=== PATIENT | female | born 1985 | race Two or more races ===

== ENCOUNTER 2024-05-04 06:18 | Day surgery (SDC) | payer BC, SELFPAY ==
[2024-04-23 10:29] LABS: % Basophils 0.3 % (0-2); % Eosinophils 0.6 % (0-6); % Immature Granulocytes 0.6 % (0-0.5); % Lymphocytes 29.3 % (20.5-51.1); % Monocytes 4.9 % (1.7-9.3); % Neutrophils 64.3 % (42.2-75.2); Absolute Eosinophils 0.1 10^3/uL (0-0.7); Absolute Immature Granulocytes 0.1 10^3/uL (0-0.05); Absolute Lymphocytes 2.7 10^3/uL (1.2-3.4); Absolute Monocytes 0.4 10^3/uL (0.1-0.6); Absolute Neutrophils 5.8 10^3/uL (1.4-6.5); Hematocrit 39.7 % (37.0-47.0); Hemoglobin 13.7 g/dL (12.0-16.0); Mean Corp Hgb Conc. 34.5 g/dL (33.0-37.0); Mean Corpuscular Hgb 30.9 pg (27.0-31.0); Mean Corpuscular Volume 89.6 fL (81.0-99.0); Mean Platelet Volume 10.9 fL (7.4-10.4); Nucleated Red Blood Cells % 0 %; Platelet Count 252 10^3/uL (130-400); Red Blood Cell Count 4.43 10^6/uL (4.20-5.40); Red Cell Dist. Width 12.4 % (11.5-14.5)
[2024-04-23 11:14] LABS: ALT (SGPT) 14 U/L (0-35); AST (SGOT) 23 U/L (14-36); Albumin 4.5 g/dl (3.5-5.0); Alkaline Phosphatase 52 U/L (38-126); Blood Urea Nitrogen 12 mg/dl (7-17); Calcium 9.7 mg/dl (8.4-10.2); Carbon Dioxide 22 mmol/L (22-30); Chloride 105 mmol/L (98-107); Glucose 86 mg/dl (70-99); Potassium 4.5 mmol/L (3.5-5.1); Sodium 136 mmol/L (135-145); Total Bilirubin 0.5 mg/dl (0.2-1.3); Total Protein 7.3 g/dl (6.3-8.2); eGFR > 60.00
[2024-04-23 14:06] VITALS: BMI 22.6
[2024-05-04] VITALS (8 sets, daily range): BP systolic 110–130; BP diastolic 72–82; BMI 22.6
--- NOTE | 2024-05-04 05:32 | HPS.HSE ---
Family Physician
-
Family Physician: Stefany Juan, DO
Chief Complaint
-
BRCA2 mutation, desire for risk reduction
History of Present Illness
38�year�old woman �0�0�2 white female presenting for consultation, known BRCA2 mutation. She is exploring risk�reducing
strategies. Her gynecologic care is managed by , she had a Pap smear January 2023 which was cytology negative, high�risk
HPV negative
Family history significant for father with pancreatic cancer, less than 1 year ago, tested positive for BRCA2.
Patient also has a paternal first cousin 37 years old further testing in the family reveals her sisters to have no evidence of mutation,
her uncle has BRCA2 mutation.
She is status post bilateral nipple sparing risk�reducing mastectomy April 24, 2022.
Past medical history significant for acne, wisdom teeth extraction
Social history patient is , she is a contractor for [employer], she denies any tobacco drug or marijuana use. She
drinks alcohol socially
Patient had previously mammogram prior to mastectomy
She has never had a colonoscopy
����������������������������������������
Review of her records dated November 30, 2018 indicating she has
BRCA2 mutation, C [address] Pathogenic mutation confirmed.
She had ultrasound and CT scan noted below. Her CA125 is 12
Medical History
Past Medical History
Past Medical History: Reports None
Past Surgical History: Reports Other (Prophylactic double mastectomy w/ reconstruction; wisdom teeth removal)
Social History
Tobacco: Non-smoker
Alcohol: Occasional
Drug: None
Personal:
Employment: Employed
Family History
Family History: Cancer (father: pancreatic, prostate, testicular; 1st cousin: breast cancer)
Allergies / Home Medications
Allergies reflects when Allergies were last updated in [employer].
Home Medications with original date entered in [facility]
Allergy/Medication List:
Gadolinium�Containing Contrast Media
Review of Systems
-
History Source: Patient
A 12 point ROS was completed and negative except as noted: Yes
Physical Exam
Physical Exam
General: Well Developed, Well Nourished and No Apparent Distress
HEENT: NormoCephalic
Respiratory: Clear
Cardiac: S1/S2 and Regular Rhythm
GI: Soft, Non Tender and Non Distended
Musculoskeletal: No Clubbing, No Cyanosis and No Edema
Skin: Warm and Dry
Neuro: Awake, Alert, Oriented and AO x 3
Psych: Calm and Intact Judgment/Insight
Laboratory Results
-
04/23/24 10:04
04/23/24 10:04
Laboratory Results
Total Bilirubin 0.5 mg/dl (0.2-1.3) 04/23/24 10:04
AST 23 U/L (14-36) 04/23/24 10:04
ALT 14 U/L (0-35) 04/23/24 10:04
Alkaline Phosphatase 52 U/L (38-126) 04/23/24 10:04
Data Reviewed
-
Diagnostic Radiology: Image Personally Visualized and interpreted
CT Scan: Image Personally Visualized and interpreted (: CT abdomen and pelvis was performed, following the administration of contrast, as per department protocol. Axial, sagittal, and coronal reconstructions were obtained. This exam was performed
according to the departmental dose�optimization program which includes automated exposure control, adjust) and Other
Impression/Plan
-
IMPRESSION:
I spoke with the patient at length and reviewed with her NCCN guidelines for management of BRCA2 mutation.
She already has undergone prophylactic bilateral mastectomy as per recommendations and is doing well, she has bilateral
implants.
The patient is at age 38, current recommendations are for consideration of risk reducing salpingo�oophorectomy between age 40�45.
We emphasized that the typical age for development of ovarian or fallopian tube cancer in this cohort appears to be 8 to 10 years
past the age for the typical BRCA1 mutation patient. We discussed that premature entry into menopause can risk possibility of
future development of cardiovascular disease and I would like to leave her ovaries in situ as long as possible to allow her to enjoy
her endogenous hormonal supply.
She is currently on oral contraceptive pills, for contraceptive purposes as well as the regular menstrual cycles and the predictability
of short cycles.
I have reviewed the imaging studies above and note both ultrasound and CT scan to be within normal limits specifically I
emphasized normal appearance of ovaries on ultrasound as well as normal appearance of pancreas. She has cyst of liver and cyst
of kidney which appear to be benign and simple at this time.
The patient is desiring the option of immediate salpingectomy with delayed oophorectomy this would allow us to
further reduce risk of development of ovarian cancer and make an assessment intraoperatively to ensure she does not
have any developing problems at this time. We will schedule the surgery in April 2024. Surgery will be scheduled at
[facility]. Risks including infection bleeding injury to adjacent organs DVT pulmonary embolism and cardiovascular
complications were discussed and reviewed. Surgery consent will be signed day of surgery.
PLAN: Laparoscopic bilateral salpingectomy
[2024-05-04] MEDS: CELEBREX 200 MG PO (06:44)
[2024-05-04] MEDS: NEURONTIN 300 MG PO (06:45)
[2024-05-04] MEDS: TYLENOL 1000 MG PO (06:45)
[2024-05-04] MEDS: HEPARIN 5000 UNITS SC (06:45)
[2024-05-04] MEDS: NORMOSOL-R 1000 IV (06:46)
[2024-05-04] MEDS: SUBLIMAZE 25 MCG IV (08:54)
--- NOTE | 2024-05-04 08:59 | OR.RPT ---
Operative Report
Operative Report
Date of procedure: May 04, 2024
Preoperative diagnosis: BRCA2 mutation desire for gynecologic risk reducing surgery
Postop diagnosis same, normal appearing pelvic organs
Procedure: Laparoscopic bilateral salpingectomy with pelvic washings, dilation and curettage
Anesthesia: General Endotracheal intubation
Surgeon: Jose Juan Alex MD
Assist: Isabell Denton PA-C
Estimated blood loss: 5 cc
Complications: None
Procedure in detail: This patient was brought to the operating room, placed in supine position, general anesthesia was administered and she was intubated without any difficulty. Plan of surgery today is for immediate risk reducing salpingectomy
with delayed oophorectomy because of young age of 38 and a BRCA2 mutation patient. She was placed in lithotomy position using yellowfin stirrups. Arms were wrapped across joints with foam and placed along the sides and properly protected. She was
prepped in the abdomen perineum and vagina and draped. Timeout procedure was completed and she received prophylactic antibiotics with Ancef. Sauer catheter was placed under sterile condition in the bladder. Anterior lip of the cervix was grasped
with single-tooth tenaculum endocervical canal was dilated, the uterus sounded to 8 cm. Sharp curettage of the endometrium was performed and specimen was submitted as EMC to pathology. Uterine manipulator HUMI type was placed in the uterus.
Attention was turned abdominally Veress needle was inserted in the umbilicus into the peritoneal cavity and insufflation with CO2 gas was performed up to pressure of 15 mmHg. 5 mm port was placed in the umbilicus inspection of the abdomen reveals
right and left diaphragms to be normal, right and left lobe of the liver is normal. Stomach spleen omentum right and left paracolic gutters and peritoneal surfaces are normal without any nodularity. The patient was placed in 30 degree
Trendelenburg. 5 mm port was placed in the left lower quadrant and 11 mm port was placed in the right lower quadrant. Uterus was elevated washings was collected from the pelvis and submitted to pathology. We grasped each of the fallopian tubes.
We used the vessel sealer 5 mm device across the mesosalpinx all the way from the ovary toward the uterus. Both tubal attachment to the cornu of the uterus was sealed and divided both fallopian tubes were submitted separately to pathology. Next
all operative sites appear to be hemostatic. Laparoscopic instruments were removed and pneumoperitoneum was released. The fascia at the right lower quadrant was closed with a single suture of 0 Vicryl. 4-0 Monocryl was used in a subcuticular
fashion to close all skin incisions. All incisions were injected with a total of 20 cc quarter percent Marcaine. Uterine manipulator and Sauer catheter was removed. Patient was awakened and placed back in supine position and transferred back to
recovery room stable awake and extubated condition. Counts of laps instruments and needle was correct x 2. I was present and scrubbed for entire procedure as dictated above.
[2024-05-04] MEDS: ROXICODONE 5 MG PO (10:37)
== END 2024-05-04 11:15 | disposition home or self-care (01) ==
LOC: SDS 06:18
PROVIDERS: ATTENDING PHYSICIAN Obstetrics & Gynecology Gynecologic Oncology; FAMILY PHYSICIAN Internal Medicine
DX: Z40.03 Encounter for prophylactic removal of fallopian tube(s) (principal); Z15.02 Genetic susceptibility to malignant neoplasm of ovary; N83.8 Other noninflammatory disorders of ovary, fallopian tube and broad ligament
CPT/HCPCS: 58661; 58120; 88305; 36415; 80053; 85025; 86850; 86900; 86901; 88112; 93005; C1776

== ENCOUNTER → 2025-07-26 12:43 | Outpatient (REF) | payer BC, SELFPAY | LOC: RAD 12:43 | PROVIDERS: ATTENDING PHYSICIAN Obstetrics & Gynecology Gynecologic Oncology; FAMILY PHYSICIAN Internal Medicine | DX: R10.30 Lower abdominal pain, unspecified (principal); Z15.01 Genetic susceptibility to malignant neoplasm of breast; Z15.02 Genetic susceptibility to malignant neoplasm of ovary | CPT/HCPCS: 76830; 76856 ==